=== PATIENT | female | born 1965 ===

== ENCOUNTER → 2019-09-06 | Outpatient (REF) | LOC: M LAB 16:20 | PROVIDERS: ATTEND Nurse Practitioner Adult Health | DX: Z00.00 Encounter for general adult medical examination without abnormal findings (principal) ==

== ENCOUNTER → 2019-11-18 | Outpatient (CLI) | payer SELFPAY | LOC: M LABSMTC 12:34 | PROVIDERS: ATTEND Pediatrics | DX: Z20.828 Contact with and (suspected) exposure to other viral communicable diseases (principal) | CPT/HCPCS: C9803; U0002 ==